=== PATIENT | female | born 1970 | race Caucasian/White ===

== ENCOUNTER 2024-07-17 17:21 | Emergency (ER) | payer SELFPAY ==
[~2024-07-17] VITALS: Ht 162.6 cm; Wt 103.8 kg
[2024-07-17 18:37] VITALS: TEMP 98.2
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
[2024-07-17] MEDS ORDERED: METH-798 PO (20:46)
[2024-07-17 20:56] VITALS: BP 140/95; PULSE 84; RESP 16; O2SAT 96
== END 2024-07-17 20:57 | disposition home or self-care (01) ==
LOC: ER 17:22
DX: S13.4XXA Sprain of ligaments of cervical spine, initial encounter (principal); M25.512 Pain in left shoulder; Y92.410 Unspecified street and highway as the place of occurrence of the external cause; Y93.89 Activity, other specified; Y92.89 Other specified places as the place of occurrence of the external cause; Y99.8 Other external cause status
CPT/HCPCS: 72040; 73030; 99284